=== PATIENT | male | born 1955 | race Caucasian/White ===

== ENCOUNTER → 2017-08-26 16:15 | Outpatient (POV) | payer BC, SELFPAY ==
--- NOTE | 2017-08-26 16:18 | HMH.PMPROC ---
- Procedure Date: 08/26/17 Time: 16:18 Anesthesiologist:: Pooja Jacob APRN Complications:: None Pre-procedure Diagnosis:: Postlaminectomy cervical spine, degenerative disc disease of the lumbar spine, chronic pain syndrome Post-procedure Diagnosis:: Same Indications for Procedure:: Patient is a pleasant 61-year-old white male who presents today to discuss his intrathecal pain pump and possible readjustment. Patient states that recently he has had an increase in his pain in his back and neck. Patient states that he has not done anything to aggravate his pain. Patient currently on meloxicam 15 mg daily. Patient has been on this for years. Patient is currently at 0.35 mg of hydromorphone daily with his intrathecal pump. And then he has a PTC with 0.03 mg 6 times a day. Patient rates his pain a 7 out of 10 today. Patient denies any side effects including urinary retention, respiratory depression, sleepiness. Procedure Details:: patient was taken back to clinic room where informed consent was obtained and the risks and benefits of the procedure were explained to the patient. The pain pump was interrogated. Patient had hydromorphone 0.35 mg daily going as a basal rate. And also had a PTC rate of 0.03 mg 6 times a day with a lockout of 4 hours. The pain pump was reprogrammed at a basal rate of 0.4 mg daily of hydromorphone and the PTC at 0.04 mg 6 times a day lockout of 4 hours. Patient tolerated procedure well. Plan and Disposition:: Patient was reassessed after the procedure and stable. I will call in diclofenac 75 mg 1 p.o. twice daily to his pharmacy. I discussed with him that he needed to stop his meloxicam. We will see him back at his next refill and reassess his symptoms at at that time. He has been instructed to call the office if any issues arise in between those times. This note was dictated with voice recognition software and may contain errors and omissions
== END ==
PROVIDERS: Family Provider Family Medicine; PCP Family Medicine; Visit Provider Clinical Nurse Specialist Family Health
DX: M54.16 Radiculopathy, lumbar region (principal)
CPT/HCPCS: 62370

== ENCOUNTER 2017-09-20 09:08 | Day surgery (SDC) | payer BC, SELFPAY ==
[2017-09-20 09:47] VITALS: BP 141/70; PULSE 73; TEMP 36.5; O2SAT 96; BMI 34.2
--- NOTE | 2017-09-20 10:57 | HMH.PMPROC ---
- Procedure Date: 09/20/17 Time: 10:57 Anesthesiologist:: Julius Stoddard MD Complications:: None Pre-procedure Diagnosis:: Degenerative disc disease of lumbar spine with lumbar radiculopathy symptoms. Postlaminectomy syndrome of the cervical spine with cervical radiculopathy symptoms. Post-procedure Diagnosis:: Same Indications for Procedure:: This patient is a pleasant 61-year-old white male who we are treating for neck pain and low back pain with radicular symptoms. He is doing very well with his pain pump. Currently he is on intrathecal Dilaudid at 0.4 mg per day. He is having some pain over both hips over the SI joints radiating to the groin. I do believe he would benefit from bilateral SI joint injections. He does have a positive José Miguel's test bilaterally. He has tenderness over both SI joints. He does have an antalgic gait. Motor strength of the lower extremities is 5/5. There is no gross sensory deficit. We will refill his pump and continue him at 0.4 mg per day of intrathecal Dilaudid. Procedure Details:: Pain pump refill Informed consent was obtained and the risks and benefits of the procedure was explained to the patient. The patient was taken to the procedure room. The pump was interrogated. The area over the pump was prepped using ChloraPrep. The pump was accessed with a 22-gauge needle. Approximately 5.5 mL mL's of the intrathecal solution was withdrawn and discarded. The pump was then refilled with 20 mL's of intrathecal Dilaudid 3 mg/mL. The pump was interrogated and the infusion was continued at 0.4 mg per day. The patient tolerated the procedure well with no complication. Plan and Disposition:: We will follow-up with him in 2 weeks. We will reevaluate his symptoms. We will also plan on bilateral SI joint injections under fluoroscopy. Again he is tender over both SI joints. He does have a positive José Miguel's test bilaterally. Pain radiates from the SI joint into the groin.
[2017-09-20 10:58] VITALS: BP 156/75; PULSE 80; RESP 18; O2SAT 98
[2017-09-20 10:59] VITALS: BP 163/79; PULSE 80; RESP 20; O2SAT 98
[2017-09-20 11:05] VITALS: BP 148/76; PULSE 85; O2SAT 97
== END 2017-09-20 11:05 | disposition home or self-care (01) ==
PROVIDERS: Family Provider Family Medicine; PCP Family Medicine; Visit Provider Anesthesiology
DX: M51.16 Intervertebral disc disorders with radiculopathy, lumbar region (principal); M96.1 Postlaminectomy syndrome, not elsewhere classified; M54.12 Radiculopathy, cervical region
CPT/HCPCS: 95991

== ENCOUNTER → 2019-03-24 08:59 | Outpatient (POV) | payer BC, MEDICARE, SELFPAY ==
[2019-03-24 09:27] VITALS: BP 150/70; PULSE 59; RESP 18; O2SAT 98; BMI 32.3
--- NOTE | 2019-03-24 12:30 | HMH.PAINSOAP ---
[facility] Pain Management SOAP Note Subjective:: Patient is a very pleasant 63-year-old white male who presents today for intrathecal pain pump follow-up. He is currently being filled with home refill and doing extremely well he rates his pain a 2 out of 10 today. His urine drug been appropriate. He denies side effects to his medication. [facility] #[id number] reviewed and appropriate. Patient is getting ready to [place] on vacation he will be filled by his home refill nurse prior to that ROS General: no recent weight change, no fever, no sleep disturbances Respiratory: no cough, no shortness of air, no recurring pulmonary infections Cardiovascular/Peripheral Vascular: No chest pain, No palpitations, no edema, no shortness of breath. Gastrointestinal: no incontinence, normal bowel movements reported Genitourinary: no incontinence Musculoskeletal: Back pain, leg pain Psychiatric: normal mood/ affect, [denies depression], [denies anxiety] Neurological: [denies weakness in extremities], [denies balance issues] Objective:: Physical Exam General: Alert and oriented x3, no acute distress, pleasant and cooperative, [on room air] Lungs: Resps E/U, Symmetrical chest expansion, Eyes: PERRL Musculoskeletal: Flexion and extension of lumbar spine somewhat guarded secondary to pain, deep tendon reflexes normal, strength in upper and lower extremities [5/5], slightly antalgic gait noted Neurological: speech clear, 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 Dr. Stoddard has reviewed this note and agrees with this plan of care. This note was dictated using voice recognition software and may contain errors or omissions Pain Management Hx Components *Have you ever received a pneumonia vaccine?: No *Have you received a flu vaccine this season?: No - *Social History *Occupational Status:: other *Travel in the last 8 weeks: None
== END ==
PROVIDERS: PCP Family Medicine; Visit Provider Clinical Nurse Specialist Family Health
DX: M51.16 Intervertebral disc disorders with radiculopathy, lumbar region (principal)
CPT/HCPCS: 99212

== ENCOUNTER → 2020-05-26 12:06 | Outpatient (POV) | payer MEDICARE, BC, SELFPAY ==
[2020-05-26 12:35] VITALS: BP 131/77; PULSE 85; RESP 18; TEMP 36.6; O2SAT 99; BMI 40.3
--- NOTE | 2020-05-26 12:41 | HMH.PAINSOAP ---
[facility] Pain Management SOAP Note Subjective:: Patient is an 64-year-old white male who presents today for follow-up. Patient has a intrathecal pain pump he has home refill. Patient recently has had a blister appear on the apex part of his intrathecal pump. It does have pus draining at this time. While examining him was noted that his intrathecal pain pump is exposed. Patient area was cleansed using chlorhexidine it was then covered in Ioband and secured with ABD pad and Tegaderm. Patient will be seen by Dr. Dolan tomorrow. Patient will be put on Bactrim DS twice a day we will give him a 14-day supply. ROS General: no recent weight change, no fever, no sleep disturbances Respiratory: no cough, no shortness of air, no recurring pulmonary infections Cardiovascular/Peripheral Vascular: No chest pain, No palpitations, no edema, no shortness of breath. Gastrointestinal: no new onset incontinence, normal bowel movements reported Genitourinary: no new onset incontinence Musculoskeletal: Back pain Skin: Quarter sized blister noted on the apex of the intrathecal pain pump. 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 Diomedes herrrea was contacted we will start the patient on Bactrim DS twice a day patient area was cleaned and bandage was secured. We will continue to follow up with the patient after his visit with Dr. Diomedes herrera. Dr. Stoddard has reviewed this note and agrees with this plan of care. This note was dictated using voice recognition software and may contain errors or omissions [facility] History I have reviewed the patient's past medical history: Yes Medical History: Reports:: Hypertension Denies:: Cancer, Diabetes Mellitus Type 1, Diabetes Mellitus Type 2, MRSA, Seizures *Have you ever received a pneumonia vaccine?: Yes *Have you received a flu vaccine this season?: Yes Other Medical History: Reports: Arthritis Amputation: No Fractures: No - *Social History Smoking Status: Never smoker Alcohol Intake: never *Occupational Status:: other Housing: house Household Members: spouse *Travel in the last 8 weeks: None Family Hx:: Cancer, Hyperlipidemia, Hypertension
== END ==
PROVIDERS: PCP Family Medicine; Visit Provider Clinical Nurse Specialist Family Health
DX: M51.16 Intervertebral disc disorders with radiculopathy, lumbar region (principal)
CPT/HCPCS: 99212

== ENCOUNTER → 2020-05-30 15:07 | Outpatient (CLI) | payer MEDICARE, BC, SELFPAY ==
[2020-05-30 16:17] LABS: Alanine Aminotransferase 37 U/L (12-78); Albumin Level 4.5 g/dl (3.5-5.0); Albumin/Globulin Ratio 1.4 (1.1-1.8); Alkaline Phosphatase 76 U/L (38-126); Anion Gap 11.9 mEq/L (5-15); Aspartate Amino Transferase 39 U/L (17-59); Bilirubin,Total 0.4 mg/dl (0.2-1.3); Blood Urea Nitrogen 24 mg/dl (9-20); Calcium 9.9 mg/dl (8.4-10.2); Carbon Dioxide 29 mmol/L (22.0-30.0); Chloride 102 mmol/L (98-107); Estimated Glomerular Filt Rate 51 ml/min (>60); GFR (African American) 62 ML/MIN (>60); Globulin 3.2 g/dL (1.3-3.2); Glucose 109 mg/dl (74-100); Potassium 4.9 mmoL/L (3.5-5.1); Sodium 138 mmol/L (136-145); Total Protein,Serum 7.7 g/dl (6.3-8.2)
== END ==
PROVIDERS: Visit Provider Anesthesiology
DX: Z01.818 Encounter for other preprocedural examination (principal)
CPT/HCPCS: 36415; 80053

== ENCOUNTER → 2020-06-01 11:04 | Outpatient (CLI) | payer MEDICARE, BC, SELFPAY | PROVIDERS: Visit Provider Surgery | DX: Z03.818 Encounter for observation for suspected exposure to other biological agents ruled out (principal) | CPT/HCPCS: U0003 ==

== ENCOUNTER → 2020-06-10 11:02 | Outpatient (POV) | payer MEDICARE, BC, SELFPAY ==
[2020-06-10 11:16] VITALS: BP 155/78; PULSE 92; RESP 18; TEMP 36.2; O2SAT 98; BMI 43.8
--- NOTE | 2020-06-10 13:06 | HMH.PMPROC ---
- Procedure Date: 06/10/20 Time: 13:06 Anesthesiologist:: Julius Stoddard MD Complications:: None Pre-procedure Diagnosis:: Degenerative disc disease of lumbar spine with lumbar radiculopathy symptoms status post washout and repositioning for infected pain pump Post-procedure Diagnosis:: Same Indications for Procedure:: This patient is a pleasant 64-year-old white male who we are seeing status post repositioning and washout of his intrathecal pain pump as his pump was exposed with possible infection. His incision is healing very nicely. He still does have some serous drainage however there is no pus coming from his incision. He has no signs of infections. He continues on antibiotics. His incision is healing very nicely and he has no side effects. He is having some increasing pain so we will increase his intrathecal hydromorphone infusion from 0.9 mg/day to 1 mg/day. He continues on periodic flow boluses will be increased to 0.083 mg every 2 hours. Procedure Details:: Informed consent was obtained and the risk and benefits of the procedure were explained to the patient. The patient was taken to the procedure room. We did look at his incision which is healing very nicely he does have some serous fluid draining from his incision however there is no infection. Pump was interrogated periodic boluses were increased to 0.083 mg every 2 hours for total of 12 boluses increasing daily dose to 1 mg/day. Patient tolerated the procedure well with no complications. Plan and Disposition:: We will see the patient back in 1 week. We will reevaluate his symptoms at that time. We will also continue to follow his incision and make sure there is no signs of infection. He does see Dr. Dolan on Saturday.
== END ==
PROVIDERS: PCP Internal Medicine Adolescent Medicine; Visit Provider Anesthesiology
DX: M51.16 Intervertebral disc disorders with radiculopathy, lumbar region (principal); Z45.1 Encounter for adjustment and management of infusion pump
CPT/HCPCS: 62368; 99212

== ENCOUNTER → 2020-06-24 09:17 | Outpatient (POV) | payer MEDICARE, BC, SELFPAY ==
[2020-06-24 10:33] VITALS: BP 161/87; PULSE 84; RESP 18; TEMP 36.7; O2SAT 96; BMI 32.3
--- NOTE | 2020-06-24 11:10 | P.CONS_ITS ---
[facility] Pain Management SOAP Note Subjective:: Patient is a pleasant 64-year-old white male who we have been treating for low back pain with lumbar radiculopathy symptoms. He is status post washout of his pain pump site with repositioning. Last week we saw his incision and it was healing very nicely. He now has increased redness and some drainage from the medial aspect of his incision. I have sent pictures to Dr. Hercules more. I talked to Dr. Dolan. We will continue his Bactrim and we have ordered a CBC and Chem-7 to look at his white count and patient also want to look at his electrolytes and kidney function. His pump will be continued at 1 mg/day of intrathecal hydromorphone. He is due for refill in the next couple weeks. He has 3 mls left in his pump which gives him 15 days of medication. We will continue to watch this. We will follow-up with him on Saturday he will be seen by Dr. Dolan at that time. Objective:: Alert and oriented x3 no acute distress. Patient does have an antalgic gait. Motor strength of the lower extremities is 5/5. There is no gross sensory deficit. Patient has had no fevers. No signs of infection. He does have some increased redness on the medial aspect of his incision. Sutures are in place. He does also have some drainage on the medial aspect of his incision. Assessment:: Degenerative disc disease of lumbar spine with lumbar radiculopathy symptoms status post pump repositioning and washout Plan:: His pump will be continued at 1 mg/day of intrathecal hydromorphone. He is due for refill in the next couple weeks. He has 3 mls left in his pump which gives him 15 days of medication. We will continue to watch this. We will follow-up with him on Saturday he will be seen by Dr. Dolan at that time. [facility] History Medical History: Reports:: Hypertension Denies:: Cancer, Diabetes Mellitus Type 1, Diabetes Mellitus Type 2, MRSA, Seizures *Have you ever received a pneumonia vaccine?: No *Have you received a flu vaccine this season?: No Other Medical History: Reports: Arthritis Amputation: No Fractures: No - *Social History Smoking Status: Never smoker Alcohol Intake: never *Occupational Status:: retired Housing: house Household Members: spouse *Travel in the last 8 weeks: None Family Hx:: Cancer, Hyperlipidemia, Hypertension
[2020-06-24 11:29] LABS: Basophils # 0.1 K/mm3 (0-0.2); Basophils % 0.8 % (0.1-2.0); Eosinophils # 0.3 K/mm3 (0.0-0.4); Eosinophils % 5.3 % (0.1-12.0); Hematocrit 42.4 % (42.0-52.0); Hemoglobin 14.5 g/dL (14.1-18.0); Lymphocytes # 1.6 K/mm3 (0.7-4.5); Lymphocytes % 27.1 % (10-50); Mean Corpuscular HGB Conc 34.1 g/dL (31.8-35.4); Mean Corpuscular Volume 99.6 fl (80-94); Mean Platelet Volume 9.5 fl (7.4-10.4); Monocytes # 0.6 K/mm3 (0.1-1.0); Monocytes % 10.5 % (1.7-9.3); Neutrophils # 3.3 K/mm3 (1.8-7.8); Neutrophils % 56.3 % (37.0-80.0); Platelet Count 193 K/mm3 (142-424); Red Blood Count 4.26 M/mm3 (4.60-6.20); Red Cell Distribution Width 13.4 % (11.5-17.5); White Blood Count 5.9 K/mm3 (4.8-10.8)
[2020-06-24 12:10] LABS: Chloride 100 mmol/L (98-107); Potassium 4.4 mmoL/L (3.5-5.1); Sodium 138 mmol/L (136-145)
[2020-06-24 12:13] LABS: Anion Gap 14.4 mEq/L (5-15); Blood Urea Nitrogen 18 mg/dl (9-20); Calcium 10.4 mg/dl (8.4-10.2); Carbon Dioxide 28 mmol/L (22.0-30.0); Creatinine Clearance Estimated 98 mL/min (50-200); Estimated Glomerular Filt Rate 76 ml/min (>60); GFR (African American) 92 ML/MIN (>60); Glucose 175 mg/dl (74-100)
== END ==
PROVIDERS: PCP Family Medicine; Visit Provider Anesthesiology
DX: M51.16 Intervertebral disc disorders with radiculopathy, lumbar region (principal); Z45.1 Encounter for adjustment and management of infusion pump
CPT/HCPCS: 80048; 85025; 99212

== ENCOUNTER → 2020-06-29 09:32 | Outpatient (POV) | payer MEDICARE, BC, SELFPAY ==
[2020-06-29 10:25] VITALS: BP 174/85; PULSE 72; RESP 20; TEMP 36.4; O2SAT 96; BMI 32.3
== END ==
PROVIDERS: Visit Provider Surgery
DX: Z53.20 Procedure and treatment not carried out because of patient's decision for unspecified reasons (principal)
CPT/HCPCS: 99212

== ENCOUNTER → 2020-10-18 10:09 | Outpatient (CLI) | payer MEDICARE, BC, SELFPAY | PROVIDERS: PCP Family Medicine; Visit Provider Surgery | DX: Z01.812 Encounter for preprocedural laboratory examination (principal); Z20.822 Contact with and (suspected) exposure to COVID-19 | CPT/HCPCS: U0003 ==

== ENCOUNTER → 2020-10-28 09:59 | Outpatient (POV) | payer MEDICARE, BC, SELFPAY ==
[2020-10-28 10:11] VITALS: BP 190/91; PULSE 87; RESP 18; TEMP 36.6; O2SAT 98; BMI 32.1
--- NOTE | 2020-10-28 10:38 | P.CONS_ITS ---
[facility] Pain Management SOAP Note Subjective:: This patient is a pleasant 64-year-old white male who we have been treating for low back pain with lumbar radiculopathy symptoms. He recently had his intrathecal pain pump taken out for infection. His pump was exposed. He was placed on oral oxycodone. He did go through withdrawal symptoms. He still has some restless leg syndromes. We will put him on Valium 5 mg twice a day to help with his muscle spasms and restless leg. He is to continue with his oxycodone. He was also placed on Requip. Pain score is a 7 out of 10. Overall he still has increasing pain and orals are not as good as his pump. Objective:: Alert and oriented x3 no acute distress. Patient has an antalgic gait. Motor strength of the lower extremities is 5/5. There is no gross sensory deficit. His incisions are healing. Drainage is very minimal and is serous fluid. Assessment:: Postlaminectomy syndrome lumbar spine with lumbar radiculopathy symptoms with recently explanted intrathecal pain pump. Plan:: Patient is wanting his pain pump put back in. I told him it will be another 7 weeks before we can replace his intrathecal pain pump. For now he is to continue on his oral oxycodone, Requip and will start Valium 5 mg twice a day. We will follow-up with him next Saturday. We will reevaluate his symptoms at that time. He is also scheduled to see Dr. Dolan on Saturday. [facility] History Medical History: Reports:: Hypertension Denies:: Cancer, Diabetes Mellitus Type 1, Diabetes Mellitus Type 2, MRSA, Seizures *Have you ever received a pneumonia vaccine?: No *Have you received a flu vaccine this season?: No Other Medical History: Reports: Arthritis Amputation: No Fractures: No - *Social History Smoking Status: Never smoker Alcohol Intake: never *Occupational Status:: retired Housing: house Household Members: spouse *Travel in the last 8 weeks: None Family Hx:: Cancer, Hyperlipidemia, Hypertension
== END ==
PROVIDERS: PCP Family Medicine; Visit Provider Anesthesiology
DX: M96.1 Postlaminectomy syndrome, not elsewhere classified (principal); M51.16 Intervertebral disc disorders with radiculopathy, lumbar region; Z98.890 Other specified postprocedural states
CPT/HCPCS: 99212; G0463

== ENCOUNTER → 2020-11-02 10:43 | Outpatient (POV) | payer MEDICARE, BC, SELFPAY ==
[2020-11-02 11:27] VITALS: BP 187/101; PULSE 77; RESP 20; O2SAT 98; BMI 32.3
--- NOTE | 2020-11-02 13:32 | P.CONS_ITS ---
[facility] Pain Management SOAP Note Subjective:: Patient is a pleasant 64-year-old white male who we have been treating for low back pain with lumbar radiculopathy symptoms. He recently had his intrathecal pain pump taken out for infection purposes. He does have a drain and he is not draining very much serous fluid. He is scheduled to have his drain taken out by Dr. Hercules more today. Overall he is doing well however he does have increasing pain at night. He would like to increase his oxycodone intake. We will increase this to oxycodone 20 mg 1 tablet 6 times a day increasing from 4 times a day. I told him to discontinue his Valium since it is not helping. We will increase his oral oxycodone and continue to follow him in the pain clinic until he is eligible for replacement of his intrathecal pain pump. Objective:: Alert and oriented x3 no acute distress. Patient does have an antalgic gait. Motor strength of lower extremities is 5/5. There is no gross sensory deficit. Incisions are healing very nicely. There is very little serous fluid draining from his drain. Assessment:: Degenerative disc disease of lumbar spine with lumbar radiculopathy symptoms and postlaminectomy syndrome lumbar spine with recently explanted intrathecal pain pump Plan:: We will increase his oral oxycodone to 20 mg 1 tablet 6 times a day. And continue to follow him in the pain clinic until he is eligible for replacement of his intrathecal pain pump. [facility] History Medical History: Reports:: Hypertension Denies:: Cancer, Diabetes Mellitus Type 1, Diabetes Mellitus Type 2, MRSA, Seizures *Have you ever received a pneumonia vaccine?: Yes *Have you received a flu vaccine this season?: Yes Other Medical History: Reports: Arthritis Amputation: No Fractures: No - *Social History Smoking Status: Never smoker Alcohol Intake: never *Occupational Status:: retired Housing: house Household Members: spouse *Travel in the last 8 weeks: None Family Hx:: Cancer, Hyperlipidemia, Hypertension
== END ==
PROVIDERS: PCP Family Medicine; Visit Provider Anesthesiology
DX: M51.16 Intervertebral disc disorders with radiculopathy, lumbar region (principal); M96.1 Postlaminectomy syndrome, not elsewhere classified
CPT/HCPCS: 99212; G0463

== ENCOUNTER → 2020-11-11 10:03 | Outpatient (POV) | payer MEDICARE, BC, SELFPAY ==
[2020-11-11 10:21] VITALS: BP 175/83; PULSE 69; RESP 18; TEMP 36.6; O2SAT 98; BMI 32.3
--- NOTE | 2020-11-11 10:33 | P.CONS_ITS ---
[facility] Pain Management SOAP Note Subjective:: Patient is a pleasant 64-year-old white male who we have been treating for low back pain with lumbar radiculopathy symptoms. He did have his intrathecal pain pump taken out for infection. He is 3 weeks out of surgery. Stitches are still in his incisions are healing very nicely. There is no drainage. We had increased his oxycodone to 20 mg up to 6 times a day. He is doing much better on this medication regimen. He is no longer taking his Valium. He did have some itching. He has taken Benadryl for this. We will continue with his current oral medication regimen. We will hold off on taking out his stitches until next week this is after consulting with Dr. Dolan. We will follow-up with him in 1 week. He also has some myofascial pain over the right scapular area. I do believe he would benefit from trigger point injections to this area. Objective:: Alert and oriented x3 no acute distress. Patient does have an antalgic gait. Incision is healing very nicely. There is no drainage. There is no signs of infection. Motor strength of the lower extremities is 5/5. There is no gross sensory deficit. Assessment:: Degenerative disc disease of lumbar spine with lumbar radiculopathy symptoms and postlaminectomy syndrome lumbar spine Plan:: We will refill his oxycodone 20 mg 1 tablet 6 times a day. We will plan on trigger point injections to the right scapular area and plan on taking out his s titches next week. [facility] History Medical History: Reports:: Hypertension Denies:: Cancer, Diabetes Mellitus Type 1, Diabetes Mellitus Type 2, MRSA, Seizures *Have you ever received a pneumonia vaccine?: Yes *Have you received a flu vaccine this season?: Yes Other Medical History: Reports: Arthritis Amputation: No Fractures: No - *Social History Smoking Status: Never smoker Alcohol Intake: never *Occupational Status:: disabled Housing: house Household Members: spouse *Travel in the last 8 weeks: None Family Hx:: Cancer, Hyperlipidemia, Hypertension
== END ==
PROVIDERS: PCP Family Medicine; Visit Provider Anesthesiology
DX: M51.16 Intervertebral disc disorders with radiculopathy, lumbar region (principal); M96.1 Postlaminectomy syndrome, not elsewhere classified
CPT/HCPCS: 99212; G0463

== ENCOUNTER 2020-11-18 14:36 | Day surgery (SDC) | payer MEDICARE, BC, SELFPAY ==
[2020-11-18 15:12] VITALS: BP 157/90; PULSE 82; RESP 18; TEMP 37; O2SAT 93; BMI 43.8
[2020-11-18 15:29] VITALS: BP 135/85; BP 139/89; PULSE 85; RESP 18; O2SAT 98
--- NOTE | 2020-11-18 15:32 | HMH.PMPROC ---
- Procedure Date: 11/18/20 Time: 15:32 Anesthesiologist:: Julius Stoddard MD Complications:: None Pre-procedure Diagnosis:: Mid back pain with myofascial pain over the thoracic paraspinous area bilaterally Post-procedure Diagnosis:: Same Indications for Procedure:: This patient is a pleasant 64-year-old white male who we are treating for mid back pain and low back pain with lumbar radiculopathy symptoms. He did have his intrathecal pain pump taken out for infection. He is approximately 4 weeks out of surgery. Stitches were taken out today. Steri-Strips were placed. His incisions are continually healing. He is on oxycodone 20 mg 6 times a day he is doing much better with this medication regimen. He does have some myofascial pain over the thoracic paraspinous muscles. We will do trigger point injections today. Procedure Details:: Trigger point injections x8 to bilateral thoracic paraspinous muscles Informed consent was obtained risk and benefits of the procedure were explained to the patient. Patient was taken the procedure room. The mid back was prepped using ChloraPrep. A total of 8 trigger points were injected each 1 with bupivacaine 0.25% 3 mL and Depo-Medrol 10 mg. A total of 80 mg Depo-Medrol was used for 8 trigger points. Therefore trigger points on each side. Patient tolerated the procedure well with no complications. Plan and Disposition:: We will follow-up with this patient in 1 week. Will reevaluate his symptoms at that time. We did call in his oxycodone 20 mg 1 tablet 6 times a day.
[2020-11-18 15:42] VITALS: BP 115/76; PULSE 65; RESP 18; O2SAT 98
== END 2020-11-18 15:43 | disposition home or self-care (01) ==
LOC: SC.PAINP 14:36
PROVIDERS: PCP Family Medicine; Visit Provider Anesthesiology
DX: M79.18 Myalgia, other site (principal); I10 Essential (primary) hypertension; Z88.5 Allergy status to narcotic agent; Z82.49 Family history of ischemic heart disease and other diseases of the circulatory system; Z83.3 Family history of diabetes mellitus
CPT/HCPCS: 20552; J1030

== ENCOUNTER → 2020-12-02 11:08 | Outpatient (POV) | payer MEDICARE, BC, SELFPAY ==
[2020-12-02 11:24] VITALS: BP 199/89; PULSE 65; RESP 18; O2SAT 98; BMI 31.9
--- NOTE | 2020-12-02 11:49 | P.CONS_ITS ---
[facility] Pain Management SOAP Note Subjective:: The patient is a pleasant 64-year-old white male who we are treating for mid back pain and low back pain with lumbar radiculopathy symptoms. He is intrathecal pain pump was taken out 6 weeks ago because of infection risk. His incisions have healed up very nicely. There is no drainage. There is no signs of any infection. He is currently being managed with oral medications oxycodone 20 mg up to 6 times a day. He has started to wean himself down on this medication. He did well from his trigger point injections previously. He is wanting to look at replacing his intrathecal pain pump at this time. Objective:: Alert and oriented x3 no acute distress. Patient does have a antalgic gait. Motor strength of the lower extremities is 5/5. There is no gross sensory deficit. Incisions over the pump explant have healed nicely. Assessment:: Degenerative disc disease of lumbar spine with lumbar radiculopathy symptoms Plan:: We will obtain a CBC to look at his white count. We will also seek approval for replacement of his intrathecal pain pump. He is starting to wean down on his oral medications. It is already been 6 weeks since his pump explant. We will plan on replacing his pump anytime after the 8-week period. [facility] History Medical History: Reports:: Hypertension Denies:: Cancer, Diabetes Mellitus Type 1, Diabetes Mellitus Type 2, MRSA, Seizures *Have you ever received a pneumonia vaccine?: Yes *Have you received a flu vaccine this season?: Yes Other Medical History: Reports: Arthritis. Denies: Blood Transfusion Reaction Other Surgeries: Yes: Hernia Repair, Other (slipped disc surgery x2) Amputation: No Fractures: No - *Social History Smoking Status: Never smoker Alcohol Intake: never *Occupational Status:: retired Housing: house Household Members: spouse *Travel in the last 8 weeks: None Family Hx:: Cancer, Hyperlipidemia, Hypertension
[2020-12-02 12:29] LABS: Basophils # 0.1 K/mm3 (0-0.2); Basophils % 0.7 % (0.1-2.0); Eosinophils # 0.1 K/mm3 (0.0-0.4); Eosinophils % 1.7 % (0.1-12.0); Hematocrit 42.9 % (42.0-52.0); Hemoglobin 14.3 g/dL (14.1-18.0); Lymphocytes # 1.4 K/mm3 (0.7-4.5); Lymphocytes % 17.8 % (10-50); Mean Corpuscular HGB Conc 33.4 g/dL (31.8-35.4); Mean Corpuscular Hemoglobin 32.6 pg (27.0-31.2); Mean Corpuscular Volume 97.5 fl (80-94); Monocytes # 0.6 K/mm3 (0.1-1.0); Monocytes % 7.7 % (1.7-9.3); Neutrophils # 5.5 K/mm3 (1.8-7.8); Neutrophils % 72.1 % (37.0-80.0); Platelet Count 177 K/mm3 (142-424); Red Cell Distribution Width 14.2 % (11.5-17.5); White Blood Count 7.6 K/mm3 (4.8-10.8)
== END ==
PROVIDERS: PCP Family Medicine; Visit Provider Anesthesiology
DX: M51.16 Intervertebral disc disorders with radiculopathy, lumbar region (principal); Z79.891 Long term (current) use of opiate analgesic
CPT/HCPCS: 36415; 85025; 99212; G0463

== ENCOUNTER → 2020-12-26 12:29 | Outpatient (CLI) | payer MEDICARE, BC, SELFPAY ==
[2020-12-26 12:58] LABS: Basophils % 0.6 % (0.1-2.0); Eosinophils # 0.1 K/mm3 (0.0-0.4); Eosinophils % 1.9 % (0.1-12.0); Hematocrit 46.2 % (42.0-52.0); Hemoglobin 15.5 g/dL (14.1-18.0); Lymphocytes # 1.3 K/mm3 (0.7-4.5); Lymphocytes % 18.4 % (10-50); Mean Corpuscular HGB Conc 33.6 g/dL (31.8-35.4); Mean Corpuscular Hemoglobin 32.6 pg (27.0-31.2); Mean Corpuscular Volume 97.2 fl (80-94); Monocytes # 0.5 K/mm3 (0.1-1.0); Monocytes % 6.7 % (1.7-9.3); Neutrophils # 5.1 K/mm3 (1.8-7.8); Neutrophils % 72.4 % (37.0-80.0); Platelet Count 183 K/mm3 (142-424); Red Blood Count 4.75 M/mm3 (4.60-6.20); Red Cell Distribution Width 14.1 % (11.5-17.5); White Blood Count 7.1 K/mm3 (4.8-10.8)
[2020-12-26 13:29] LABS: Chloride 102 mmol/L (98-107); Sodium 140 mmol/L (136-145)
[2020-12-26 13:30] LABS: Potassium 4.7 mmoL/L (3.5-5.1)
[2020-12-26 13:32] LABS: Blood Urea Nitrogen 17 mg/dl (9-20); Estimated Glomerular Filt Rate 85 ml/min (>60); GFR (African American) 103 ML/MIN (>60)
[2020-12-26 13:33] LABS: Anion Gap 12.7 mEq/L (5-15); Calcium 9.8 mg/dl (8.4-10.2); Carbon Dioxide 30 mmol/L (22.0-30.0); Glucose 151 mg/dl (74-100)
[2020-12-26 15:43] LABS: Amphetamine/Metha Screen,Urine Negative ng/ml (<1000)
[2020-12-26 15:44] LABS: Barbiturates Screen,Urine Negative ng/ml (<200)
[2020-12-26 15:45] LABS: Benzodiazepines Screen,Urine Negative ng/ml (<200); Cannabinoid Screen,Urine Negative ng/ml (<50)
[2020-12-26 15:46] LABS: Cocaine Screen,Urine Negative ng/ml (<300)
[2020-12-26 15:47] LABS: Methadone Screen,Urine Negative ng/ml (<300)
[2020-12-26 15:48] LABS: Opiate Screen,Urine Positive ng/ml (<300); Phencyclidine Screen,Urine Negative ng/ml (<25)
== END ==
PROVIDERS: Visit Provider Anesthesiology
DX: Z01.812 Encounter for preprocedural laboratory examination (principal); Z11.52 Encounter for screening for COVID-19; M51.36 Other intervertebral disc degeneration, lumbar region; Z79.891 Long term (current) use of opiate analgesic
CPT/HCPCS: 36415; 80048; 80305; 85025; U0003

== ENCOUNTER 2020-12-28 08:26 | Day surgery (SDC) | payer MEDICARE, BC, SELFPAY ==
[2020-12-22 09:37] VITALS: BMI 30.7
[2020-12-28 09:42] VITALS: BP 176/77; PULSE 62; RESP 18; TEMP 37; O2SAT 99
--- NOTE | 2020-12-28 10:14 | HMH.ANESCL ---
[facility] Anesthesia Checklist - Patient Identification Patient Identification: Arm Band - Structural Data Admitted From: Home Planned Operative Procedure/s: Intrathecal pain pump insertion Consent for Planned Operative Procedure(s) Verified: Yes - NPO Status Verified Time NPO: 00:00 - Additional verifications Anesthesia Reactions: No Hx Blood Transfusions: No Blood Transfusion Reaction: No - Airway Assessment C-Spine Mobility Assessed: Yes TMJ Mobility Assessed: Yes Dentition: Partials - Neurological Assessment Level of Consciousness: Awake Hx Seizures: No Numbness or tingling in extremities: Yes - Anesthesia Plan Anesthesia Risk discussed: Yes Anesthesia Plan: Verified ASA Class: III Anesthesia Type: General [facility] History I have reviewed the patient's past medical history: Yes Medical History: Reports:: Gastroesophageal Reflux Disease(GERD), Hypertension, MRSA Denies:: Cancer, Diabetes Mellitus Type 1, Diabetes Mellitus Type 2, Internal Pacemaker, Seizures *Have you ever received a pneumonia vaccine?: No *Have you received a flu vaccine this season?: No Other Medical History: Reports: Arthritis, Other (Severe JACQUELYN). Denies: Blood Transfusion Reaction Anesthesia experience/problems:: Mother - hard time waking up Other Surgeries: Yes: Hernia Repair, Other (slipped disc surgery x2). No: Pacemaker Amputation: No Fractures: No - *Social History Last grade of school completed: High school graduate Smoking Status: Never smoker Alcohol Intake: current Alcohol Intake Frequency:: a few times a month Substance Use Type: denies use *Occupational Status:: retired Housing: house Household Members: spouse *Travel in the last 8 weeks: None Family Hx:: Cancer, Hyperlipidemia, Hypertension
--- NOTE | 2020-12-28 13:23 | PC.NURSE ---
called in RX for BActrim DS PO BID x5 days per md order.
--- NOTE | 2020-12-28 13:35 | SUR.OPER ---
Procedure: Intrathecal catheter placement for permanent intrathecal pump placement Provider: Leola Painting MD Complications: None Antibiotics: Vancomycin preoperatively, Bactrim DS postoperatively PreOperative diagnosis: Lumbar radiculopathy, degenerative disc disease of the lumbar spine Postoperative diagnosis: Same Indications: Patient is a very pleasant 84-year-old white male who we are treating for mid back pain and low back pain related to lumbar radiculopathy symptoms and degenerative disc disease of the lumbar spine. He has previously had an intrathecal pump but it was taken out 2 months ago because of infection risk. His incisions have healed up appropriately. He is currently being managed on oral medications oxycodone 20 mg up to 6 times a day and has since weaned down. Plan for today is for him to undergo intrathecal catheter placement for permanent intrathecal pump placement. Procedure: Informed consent was obtained and the risk and benefits of the procedure were explained to the patient. The patient was taken to the operating room. Patient was prepped and draped in sterile fashion. C-arm fluoroscopy was used to view the lumbar spine. The skin and subcutaneous tissues were anesthetized using lidocaine adjacent to the L4-5 and L5-S1 interspace. I made an incision and dissected down to the lumbar paraspinous fascia. A 14-gauge spinal needle was inserted and advanced into the L4-5 interspace until clear CSF was obtained. After this intrathecal catheter was inserted and advanced very easily to the T12 vertebral body. The previous catheter was visualized at the T11 vertebral body. The stylette of the catheter and the needle were withdrawn. We were able to freely withdraw clear CSF through the catheter. The catheter was secured to the fascia with 2 anchoring devices and 2-0 Prolene. I prepared the pump with 20 mL of intrathecal dilaudid 1 mg/mL while Dr. Dolan prepared the pump pocket. I tunneled the catheter from the back to the pump pocket and attached the catheter to the pump. The pump was secured to the fascia with 2-0 Prolene. We were able to freely withdraw clear CSF through the side-port. Both incisions were then closed with 2-0 Vicryl followed by 4-0 nylon. A wound VAC was placed over both incisions. The patient was placed in an abdominal binder. Patient was taken to recovery in stable condition. Patient tolerated the procedure well with no complications. The pump was interrogated and started at 0.1 mg/day of [intrathecal dilaudid] Patient was discharged home neurologically intact and with good relief of pain symptoms. Plan and disposition: We will follow-up with this patient in 1 week for wound check and reprogramming. We will follow-up in 2 weeks for suture removal of abdominal incision. We will follow-up in 4 weeks for back incision. If the patient has any problems or questions they are to call us in the pain clinic.
[2020-12-28 13:38] VITALS: BP 149/80; PULSE 55; RESP 18; O2SAT 96
[2020-12-28 13:53] VITALS: BP 149/78; PULSE 55; RESP 18; O2SAT 96
--- NOTE | 2020-12-28 13:57 | P.OP_ITS ---
Date of procedure: 12/28/20 Pre-op Diagnosis:: Disc disease of the lumbar spine with radiculopathy Post-op Diagnosis:: Same Procedure performed:: Placement of pain pump generator Surgeon:: Dandy Dolan MD CHARTER BOAT CAPTAIN:: Oneil Potter, Ranjan Urbina, Hernan Galvez, Riaz Newman, Other Anesthesia: GETA Estimated blood loss (mL): 25 Operative findings:: Not applicable Operative note:: Once adequate IV sedation was obtained the patient was placed on his right side and his back and abdomen were prepped and draped in sterile fashion. The intrathecal catheter was placed by the pain physician under fluoroscopic guidance. The catheter was sutured to the paraspinal incision fascia with 2-0 Prolene sutures and fixation devices. Utilizing the tunneling device the catheter was passed from the paraspinal incision to the left lower quadrant area. At that point a pocket was made by me under which was made as a reservoir for the pain pump generator. The catheter was then connected the generator which was placed in the pocket. CSF was aspirated from the generator noting patency of the system. A counterincision was used on passage of the tunneler and the lateral abdominal wall. At this point the subcutaneous tissues of all incisions closed with 2-0 Vicryl. The skin of the abdomen was closed with interrupted stitches of 2-0 nylon and on the back was interrupted stitches of 4- 0 nylon. Counterincision was also closed with stitches of 4-0 nylon. Wound VAC dressings and binder is applied to the wound. The patient tolerated procedure well and was taken recovery in stable condition. Condition: stable Disposition: PACU Complications:: None
[2020-12-28 14:08] VITALS: BP 154/91; PULSE 50; RESP 18; O2SAT 95
[2020-12-28 14:23] VITALS: BP 152/83; PULSE 50; RESP 18; O2SAT 96
[2020-12-28 14:46] VITALS: BP 146/85; PULSE 52; RESP 18; O2SAT 96
--- NOTE | 2020-12-30 17:12 | HMH.OPNOTE ---
Date of procedure: 12/30/20 Pre-op Diagnosis:: Disease of the lumbar spine with lumbar radiculopathy symptoms Post-op Diagnosis:: Same Procedure performed:: Intrathecal catheter placement for permanent pump placement Surgeon:: Leola Painting MD Anesthesia: MAC Estimated blood loss (mL): 25 Operative findings:: As outlined in operative note Operative note:: Pain pump placement Informed consent was obtained and the risk and benefits of the procedure were explained to the patient. The patient was taken to the operating room. Patient was prepped and draped in sterile fashion. C-arm fluoroscopy was used to view the lumbar spine. The skin and subcutaneous tissues were anesthetized using lidocaine adjacent to the L4-5 and L5-S1 interspace. I made an incision and dissected down to the lumbar paraspinous fascia. A 14-gauge spinal needle was inserted and advanced into the L4-5 interspace until clear CSF was obtained. After this intrathecal catheter was inserted and advanced very easily to the L1 vertebral body. The stylette of the catheter and the needle were withdrawn. We were able to freely withdraw clear CSF through the catheter. The catheter was secured to the fascia with 2 anchoring devices and 2-0 Prolene. I prepared the pump with 20 mL of intrathecal dilaudid 1 mg/mL while Dr. Dolan prepared the pump pocket. I tunneled the catheter from the back to the pump pocket and attached the catheter to the pump. We were able to freely withdraw clear CSF through the side-port. Both incisions were then closed with 2-0 Vicryl followed by 4-0 nylon. A wound VAC was placed over both incisions. The patient was placed in an abdominal binder. Patient was taken to recovery in stable condition. Patient tolerated the procedure well with no complications. The pump was interrogated and started at 0.1 mg/day of intrathecal dilaudid. Patient was discharged home neurologically intact and with good relief of pain symptoms. Plan and disposition: We will follow-up with this patient in 1 week for wound check and reprogramming. We will follow-up in 2 weeks for abdominal suture removal and 4 weeks for back suture removal. If the patient has any problems or questions they are to call us in the pain clinic. Condition: stable Disposition: PACU Complications:: none
== END 2020-12-28 14:46 | disposition home or self-care (01) ==
LOC: OR 08:28
PROVIDERS: PCP Family Medicine; Visit Provider Anesthesiology Pain Medicine
DX: M51.16 Intervertebral disc disorders with radiculopathy, lumbar region (principal); K21.9 Gastro-esophageal reflux disease without esophagitis; I10 Essential (primary) hypertension; Z86.14 Personal history of Methicillin resistant Staphylococcus aureus infection; M19.90 Unspecified osteoarthritis, unspecified site; G47.33 Obstructive sleep apnea (adult) (pediatric); Z87.39 Personal history of other diseases of the musculoskeletal system and connective tissue; Z80.9 Family history of malignant neoplasm, unspecified; Z82.49 Family history of ischemic heart disease and other diseases of the circulatory system; Z83.438 Family history of other disorder of lipoprotein metabolism and other lipidemia; Z88.6 Allergy status to analgesic agent; Z79.899 Other long term (current) drug therapy
CPT/HCPCS: 62350; 62362; 96374; C1755; C1772; J3370

== ENCOUNTER → 2021-01-05 11:15 | Outpatient (POV) | payer MEDICARE, BC, SELFPAY ==
[2021-01-05 11:22] VITALS: BP 148/82; PULSE 54; RESP 18; O2SAT 96; BMI 30.7
--- NOTE | 2021-01-05 12:36 | HMH.PMPROC ---
- Procedure Date: 01/05/21 Time: 12:36 Anesthesiologist:: Ayla Bartlett APRN Complications:: None Pre-procedure Diagnosis:: Degenerative disc disease lumbar spine with lumbar radiculopathy symptoms, back pain Post-procedure Diagnosis:: Same Indications for Procedure:: Patient is a 65-year-old white male who presents today for follow-up after change out of his intrathecal pain pump. The patient had erosion of his previous pump in his lumbar spine x2. As result, the patient's pump was placed in the abdomen left lower quadrant. Patient is here today for 1 week follow-up. Patient's pain is a 6 out of 10 today. He says that his pain is worse and he wants to be increased to his previous dose. Patient I did have a long discussion and he understands that we will not be able to place him back at his previous dose due to not having the intrathecal pump for some time. He was previously on 1 mg/day, periodic flow every 2 hours. He is currently on a dose of 0.1 mg of Dilaudid. He denies any side effects and wants an increase today. Patient removed his own wound VAC on Saturday. Today is , 01/05/2021. Patient did have his procedure on 12/28/2020. He has been advised to continue to keep the incision clean due to high risk of infection. He is in agreement. He does have his abdominal binder on today. I have advised him to continue wearing the abdominal binder until further instructed for removal. He is in agreement. His sutures are intact to the left lower quadrant and to his low back area. There is no redness, drainage, or edema noted to site. He is currently on a dose of Dilaudid at 0.1 mg/day. We will increase him today. Patient's [facility] #[id number] has been reviewed. The patient was previously getting oxycodone 20 mg 1 tablet p.o. up to 6 times daily since having his intrathecal pump removed. I have advised him regarding his oral medications with the intrathecal pump. He is at a very high risk for oversedation and should not be taking both medications simultaneously. 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 Patient was taken to the procedure room where noninvasive monitoring was placed including noninvasive blood pressure cuff and pulse oximeter. Patient's pump was interrogated and was reprogrammed to Dilaudid 0.12 mg/day. PTC started at 0.012 mg up to 4 times daily. The patient tolerated the procedure well with no complications. Plan and Disposition:: We will see the patient back in 1 week. Evert #[id number] has been reviewed and is appropriate. His morphine equivalent at this time is 180. Again, he has been advised to use caution in taking any other medications with his intrathecal pump due to high risk of oversedation. Patient has been prescribed a controlled substance after being counseled on the medication, medication safety, and possible side effects. EVERT report has been obtained and reviewed prior to prescription and found to be appropriate. Opioid contract was reviewed and signed by the patient, and that they have agreed to all of the terms set forth by our compliance program.
== END ==
PROVIDERS: PCP Family Medicine; Visit Provider Clinical Nurse Specialist Family Health
DX: M51.16 Intervertebral disc disorders with radiculopathy, lumbar region (principal)
CPT/HCPCS: 62368

== ENCOUNTER → 2021-01-09 13:33 | Outpatient (POV) | payer MEDICARE, BC, SELFPAY ==
[2021-01-09 14:07] VITALS: BP 153/78; PULSE 66; RESP 18; O2SAT 100; BMI 30.7
--- NOTE | 2021-01-09 14:48 | HMH.PMPROC ---
- Procedure Date: 01/09/21 Time: 14:48 Anesthesiologist:: Ayla Bartlett APRN Complications:: None Pre-procedure Diagnosis:: Degenerative disc disease lumbar spine with lumbar radiculopathy symptoms, chronic back pain Post-procedure Diagnosis:: Same Indications for Procedure:: Patient is a 65-year-old white male who presents today for intrathecal pain pump adjustment. He does have sutures intact at this time. He has an incision to his back, left flank, and left abdomen. He did have an explant of a pain pump due to erosion of the previous pump with reimplant. He is doing well overall. He does say he is not getting enough relief, however, he did remove the wound VAC per himself at his home due to feeling the device was not working properly. He is currently on high dose of Dilaudid at 0.12 mg/day. We will increase him. His Evert and drug screen are appropriate. Denies any side effects to medication. 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 Patient was taken to the procedure room where noninvasive monitoring was placed including noninvasive blood pressure cuff and pulse oximeter. Patient's pump was interrogated and was reprogrammed to Dilaudid at 0.15 mg/day. The patient tolerated the procedure well with no complications. Plan and Disposition:: We will see the patient back in the clinic in 1 week for reevaluation of symptoms. He has been instructed to contact clinic if he has any concerns for his next appointment. Patient has been instructed to contact the clinic with any concerns before the next appointment. Dr. Stoddard has reviewed this note and agrees with this plan of care. This note was dictated using voice recognition software and make contain errors or omissions.
== END ==
PROVIDERS: Visit Provider Clinical Nurse Specialist Family Health
DX: M51.16 Intervertebral disc disorders with radiculopathy, lumbar region (principal); G89.29 Other chronic pain
CPT/HCPCS: 62368

== ENCOUNTER → 2021-01-12 08:07 | Outpatient (POV) | payer MEDICARE, BC, SELFPAY ==
[2021-01-12 08:25] VITALS: BP 139/65; PULSE 68; RESP 18; O2SAT 98; BMI 30.7
--- NOTE | 2021-01-12 08:57 | P.PCN_ITS ---
- Procedure Date: 01/12/21 Time: 08:30 Anesthesiologist:: Ayla Bartlett APRN Complications:: None Pre-procedure Diagnosis:: Degenerative disc disease lumbar spine lumbar radiculopathy symptoms, chronic back pain Post-procedure Diagnosis:: Same Indications for Procedure:: Patient is a 65-year-old white male who presents today for intrathecal pain pump adjustment. He has been treated for degenerative disc disease lumbar spine with lumbar radicular symptoms and chronic back pain. Patient is currently on Dilaudid at 0.15 mg/day and denies any side effects. He would like an increase today. We will give him a slight increase and see him back in a week to reassess his symptoms. Patient recently had a change out of his intrathecal pump due to erosion of the previous pump through the skin. He does rate his pain a 7 out of 10. He denies any side effects to the medication. 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 Patient was taken to the procedure room where noninvasive monitoring was placed including noninvasive blood pressure cuff and pulse oximeter. Patient's pump was interrogated and was reprogrammed to Dilaudid at 0.18 mg/day. The patient tolerated the procedure well with no complications. Plan and Disposition:: We will see the patient back at his next intrathecal refill. He can contact the clinic if he has any concerns before then. Patient has been instructed to contact the clinic with any concerns before the next appointment. Dr. Stoddard has reviewed this note and agrees with this plan of care. This note was dictated using voice recognition software and make contain errors or omissions.
== END ==
PROVIDERS: Visit Provider Clinical Nurse Specialist Family Health
DX: M51.16 Intervertebral disc disorders with radiculopathy, lumbar region (principal); G89.29 Other chronic pain; Z45.1 Encounter for adjustment and management of infusion pump
CPT/HCPCS: 62368

== ENCOUNTER → 2021-01-26 11:32 | Outpatient (POV) | payer MEDICARE, BC, SELFPAY ==
[2021-01-26 11:43] VITALS: BP 143/71; PULSE 65; RESP 18; O2SAT 98; BMI 29.0
--- NOTE | 2021-01-26 12:18 | P.PCN_ITS ---
- Procedure Date: 01/26/21 Time: 12:18 Anesthesiologist:: Ayla Bartlett APRN Complications:: None Pre-procedure Diagnosis:: Degenerative disc disease lumbar spine with lumbar radiculopathy symptoms, chronic low back pain Post-procedure Diagnosis:: Same Indications for Procedure:: Patient is a 65-year-old white male who presents today for intrathecal pain pump adjustment. He has been treated for degenerative disc disease lumbar spine with lumbar radiculopathy symptoms. Patient's pain is a 6 out of 10 today. He would like an increase in his intrathecal therapy. He is a home refill patient. We will place him back on home refill visit after the visit today. He does have a Evert [id number], with a morphine equivalent of 180. The patient is managed as well with oxycodone 20 mg 2 tablets p.o. 3 times daily. He says that his pain is worse due to recent travel. He is currently on Dilaudid at 0.18 mg/day. He would also like an increase in his boluses so that he can take them every 4 hours if needed. He will need sutures removed today. His incision is well approximated, no redness, no drainage, no edema is noted to the site. He is continuing to wear his abdominal binder as well. Physical exam General: Alert and oriented x3, no acute distress, pleasant and cooperative, [on room air] Lungs: Respirations even and unlabored, symmetrical chest expansion Eyes: PERRL Musculoskeletal: Flexion and extension of [] lumbar spine somewhat guarded secondary to pain, deep tendon reflexes normal, strength in upper and lower extremities [5/5], [abnormal gait noted] Neurological: Speech clear, animal technician equal, no gross sensory deficit Integumentary: Incision well approximated, no redness, no drainage, no edema noted to site Procedure Details:: Informed consent was obtained and the risk and benefits of the procedure were explained to the patient. Patient was taken to the procedure room where noninvasive monitoring was placed including noninvasive blood pressure cuff and pulse oximeter. Patient's pump was interrogated and was reprogrammed to hydromorphone at 0.24 mg/day, PTC increased to 0.024 mg up to 6 times daily. The patient tolerated the procedure well with no complications. Plan and Disposition:: Sutures were removed today. Incision is well approximated, without redness, drainage, or edema to the area. He was increased today. We will place the patient back on home refills and see him back in the clinic as needed. Patient has been instructed to contact the clinic with any concerns before the next appointment. Dr. Stoddard has reviewed this note and agrees with this plan of care. This note was dictated using voice recognition software and make contain errors or omissions. Patient has been prescribed a controlled substance after being counseled on the medication, medication safety, and possible side effects. EVERT report has been obtained and reviewed prior to prescription and found to be appropriate. Opioid contract was reviewed and signed by the patient, and that they have agreed to all of the terms set forth by our compliance program.
== END ==
PROVIDERS: Visit Provider Clinical Nurse Specialist Family Health
DX: M51.16 Intervertebral disc disorders with radiculopathy, lumbar region (principal); G89.29 Other chronic pain; Z45.1 Encounter for adjustment and management of infusion pump
CPT/HCPCS: 62368

== ENCOUNTER → 2021-02-09 09:45 | Outpatient (POV) | payer MEDICARE, BC, SELFPAY ==
[2021-02-09 09:52] VITALS: BP 154/72; PULSE 60; RESP 20; O2SAT 99; BMI 29.0
--- NOTE | 2021-02-09 10:27 | HMH.PMPROC ---
- Procedure Date: 02/09/21 Time: 10:28 Anesthesiologist:: Ayla Bartlett APRN Complications:: None Pre-procedure Diagnosis:: Degenerative disc disease lumbar spine with lumbar radiculopathy symptoms Post-procedure Diagnosis:: Same Indications for Procedure:: Patient is a 65-year-old white male who presents today for intrathecal pain pump adjustment. The patient is being treated for degenerative disc disease lumbar spine with lumbar radiculopathy symptoms. The patient is currently on Dilaudid at 0.24 mg/day. Patient does need an increase. He says that he is not getting any significant relief with his pump at this time. PTC is at 0.024 mg 6 times daily. He says the PTC device is not giving him any relief. Dr. Stoddard was contacted regarding the patient's dosing. He would like the patient increase to Dilaudid at 0.48 mg/day. Patient has been advised that this is a significant increase and will need to return to the clinic tomorrow if he is experiencing any side effects. He is in agreement. [facility] #[id number] has been reviewed and is appropriate. Drug screen is appropriate. Patient is continuing to have significant pain in his low back and lower extremities. The patient had an intrathecal pain pump in the past that was explanted. When he did undergo implant of new device, he was decreased significantly in his dosing. Patient is hopeful to get the same pain relief as he did prior to explant. Physical exam General: Alert and oriented x3, no acute distress, pleasant and cooperative, [on room air] Lungs: Respirations even and unlabored, symmetrical chest expansion Eyes: PERRL Musculoskeletal: Flexion and extension of [] lumbar [spine] somewhat guarded secondary to pain, strength in upper and lower extremities [5/5], [antalgic gait noted] Neurological: Speech clear, [operation specialist equal], no gross sensory deficit Procedure Details:: Informed consent was obtained and the risk and benefits of the procedure were explained to the patient. Patient was taken to the procedure room where noninvasive monitoring was placed including noninvasive blood pressure cuff and pulse oximeter. Patient's pump was interrogated and was reprogrammed to Dilaudid at 0.48 mg/day. The patient tolerated the procedure well with no complications. Plan and Disposition:: We will see the patient back as needed. He will start [facility] home refills with his next refill. If the patient has any questions, contact the clinic.
== END ==
PROVIDERS: Visit Provider Clinical Nurse Specialist Family Health
DX: M51.16 Intervertebral disc disorders with radiculopathy, lumbar region (principal); Z45.1 Encounter for adjustment and management of infusion pump
CPT/HCPCS: 62368

== ENCOUNTER → 2021-03-31 09:25 | Outpatient (POV) | payer MEDICARE, BC, SELFPAY ==
[2021-03-31 10:13] VITALS: BP 164/80; PULSE 63; RESP 20; TEMP 36.5; O2SAT 99; BMI 29.0
--- NOTE | 2021-03-31 10:23 | HMH.PMPROC ---
- Procedure Date: 03/31/21 Time: 10:23 Anesthesiologist:: Julius Stoddard MD Complications:: None Pre-procedure Diagnosis:: Degenerative disc disease of lumbar spine with lumbar radiculopathy symptoms Post-procedure Diagnosis:: Same Indications for Procedure:: Patient is a pleasant 65-year-old white male who we are treating for low back pain with lumbar radiculopathy symptoms. He does have a new pump which we are currently adjusting. He is having some increasing pain with increased activity. He is leaving for [place] next month for several months with his . He is under a as home refill. We will adjust his pain pump today and adjust his PTC boluses to see if we can get him better relief of his pain symptoms. Procedure Details:: Analysis and reprogram of intrathecal pain pump Informed consent was obtained the risk and benefits of the procedure were explained to the patient. Patient was taken the procedure room. The pump was interrogated. Intrathecal pain pump was adjusted to 0.8 mg/day. PTC boluses were planned to be adjusted to 0.08 mg up to 8 times a day. Patient did not have his PTC today we will do this when he brings back to clinic. Patient tolerated procedure well with no complications. Plan and Disposition:: Patient is to bring his PTC device to the clinic to have it adjusted. We will follow-up with him before he leaves on his trip or after he returns. We will communicate our changes to [facility] home refill. Evert and drug screen are all appropriate Evert [id number]
== END ==
PROVIDERS: PCP Family Medicine; Visit Provider Anesthesiology
DX: M51.16 Intervertebral disc disorders with radiculopathy, lumbar region (principal); Z45.1 Encounter for adjustment and management of infusion pump; Z88.6 Allergy status to analgesic agent
CPT/HCPCS: 62368

== ENCOUNTER → 2021-11-16 10:48 | Outpatient (POV) | payer MEDICARE, BC, SELFPAY ==
[2021-11-16 11:54] VITALS: BP 179/78; PULSE 69; RESP 18; TEMP 36.8; O2SAT 97; BMI 32.3
--- NOTE | 2021-11-16 12:01 | P.PCN_ITS ---
- Procedure Date: 11/16/21 Time: 12:01 Anesthesiologist:: REGGIE Segura Complications:: None Pre-procedure Diagnosis:: Degenerative disc disease of lumbar spine with lumbar radiculopathy symptoms Post-procedure Diagnosis:: Same Indications for Procedure:: Patient is a pleasant 65-year-old male who presents today for a 6-month follow- up and intrathecal pain pump adjustment. Patient is currently being treated for degenerative disc disease lumbar spine with lumbar radiculopathy symptoms. Patient is a home refill with [facility]. Patient is currently being managed with Dilaudid 10 mg/mL at a rate of 0.96 mg/day. Patient denies any side effects from this medication. Patient denies any change to location and type of pain. Patient rates his pain today as 5 out of 10. Patient is wanting adjustment today. [facility] #[id number] with an active morphine equivalent of 0. Physical Exam: General: Alert and oriented x3, no acute distress, pleasant and cooperative Lungs: Respirations even and unlabored, symmetrical chest expansion Eyes: PERRL Musculoskeletal: Flexion and extension of lumbar [spine] somewhat guarded secondary to pain, [antalgic gait noted] Neurological: Speech clear, no gross sensory deficit Procedure Details:: Informed consent was obtained and the risk and benefits of the procedure were explained to the patient. Patient was taken to the procedure room where noninvasive monitoring was placed including noninvasive blood pressure cuff and pulse oximeter. Patient's pump was interrogated and was reprogrammed to Dilaudid 1.06 mg/day. The patient tolerated the procedure well with no complications. Plan and Disposition:: Follow-up in 6 months. Patient has been instructed to contact the clinic with any concerns before the next appointment. Dr. Stoddard has reviewed this note and agrees with this plan of care. This note was dictated using voice recognition software and make contain errors or omissions.
== END ==
PROVIDERS: Visit Provider Student in an Organized Health Care Education/Training Program
DX: M51.16 Intervertebral disc disorders with radiculopathy, lumbar region (principal); Z45.1 Encounter for adjustment and management of infusion pump
CPT/HCPCS: 62368; 99213; G0463

== ENCOUNTER → 2022-04-12 10:27 | Outpatient (POV) | payer MEDICARE, BC, SELFPAY ==
[2022-04-12 11:44] VITALS: BP 162/73; PULSE 67; RESP 18; TEMP 36.2; O2SAT 99; BMI 32.3
--- NOTE | 2022-04-12 12:25 | EXP.PAIN.PRO ---
Procedure Date: 04/12/22 Time: 11:40 Anesthesiologist:: Hayley Myrick APRN Complications:: None Pre-procedure Diagnosis:: Degenerative disc disease of lumbar spine with lumbar radiculopathy symptoms Post-procedure Diagnosis:: Same Indications for Procedure:: Patient is a pleasant 66-year-old male who presents today for intrathecal pain pump adjustment and reprogram. The patient is being treated for degenerative disc disease of lumbar spine with lumbar radiculopathy symptoms. Patient is currently being managed with Dilaudid 10 mg/mL with a daily dose of 1.3944 mg/day. Patient denies any side effects from this medication. Patient rates pain a 4 out of 10. Drug screen is appropriate. Patient states recently he has had left shoulder pain that often wakes him up at night due to the pain and throbbing. Patient denies any specific trauma or injury. Evert [id number] has been reviewed and is appropriate. Physical exam General: Alert and oriented x3, no acute distress, pleasant and cooperative Lungs: Respirations even and unlabored, symmetrical chest expansion Eyes: PERRL Musculoskeletal: Flexion and extension of lumbar [spine] somewhat guarded secondary to pain, [antalgic gait noted] Neurological: Speech clear, no gross sensory deficit Procedure Details:: Informed consent was obtained and the risk and benefits of the procedure were explained to the patient. Patient was taken to the procedure room where noninvasive monitoring was placed including noninvasive blood pressure cuff and pulse oximeter. Patient's pump was interrogated and was reprogrammed to Dilaudid 10 mg/mL with a daily dose of 1.5 to 4 mg/day. The patient tolerated the procedure well with no complications. Plan and Disposition:: Patient continues to have significant pain in his low back with radicular symptoms. I have discussed with the patient regarding ordering left shoulder imaging due to his new pain symptoms and possible injury to the site. I will order for a x-ray of his left shoulder. Patient is scheduled to go back to their home in [place] in the next week or 2. We will see the patient back in the clinic at the next intrathecal refill. Patient has been instructed to contact the clinic with any concerns before the next appointment. Dr. Stoddard has reviewed this note and agrees with this plan of care. This note was dictated using voice recognition software and make contain errors or omissions. -- It Is medically necessary for this patient to continue to have their intrathecal pump refilled at regular intervals. This patient had an intrathecal pain pump implanted after meeting criteria of chronic intractable pain for greater than 3 months and failing conservative treatments. Patient has committed and been compliant to the treatment plan and all planned follow up care. Since implantation of the intrathecal pain pump, the patient has had decreased pain and been more functional. Oral medications have been reduced including intake of oral opioids. Patient continues to do well with intrathecal therapy with decrease in pain symptoms and increase in functional status. Stopping intrathecal medications can lead to life threatening withdrawal, seizures, cardiac arrest, severe pain, and possible . Pumps that are not refilled at regular intervals can be damages and cause and need for replacement. We continually titrate dose and concentration to optimize pain relief and function. We are limited in concentration for certain drugs to safely deliver medications through the pump and stay within the recommendations from the Polyanalges[employer] Consensus Committee Guidelines. Depending on dose and concentration these pumps may need to be refilled sooner than 3 months as we titrate.
== END | disposition home or self-care (01) ==
PROVIDERS: Visit Provider Nurse Practitioner Family
DX: M51.16 Intervertebral disc disorders with radiculopathy, lumbar region (principal)
CPT/HCPCS: 62368; 99213; G0463

== ENCOUNTER → 2022-04-12 11:38 | Outpatient (CLI) | payer MEDICARE, BC, SELFPAY ==
--- NOTE | 2022-04-12 11:52 | XR_ITS ---
FINAL REPORT CLINICAL HISTORY: LEFT SHOULDER PAIN FINDINGS: LEFT SHOULDER 3 views of the left shoulder were obtained. There is no acute fracture or dislocation. Visualized joint spaces are normally aligned. There is moderate acromioclavicular joint arthropathy. The glenohumeral joint is unremarkable. Soft tissues are unremarkable. IMPRESSION: Moderate acromioclavicular joint arthropathy. Reviewed, Interpreted and Dictated by Jorden Silva MD Transcribed by Leydi Ardon Authenticated and [facility]
== END ==
PROVIDERS: PCP Family Medicine; Visit Provider Nurse Practitioner Family
DX: M25.512 Pain in left shoulder (principal)
CPT/HCPCS: 62368; 73030; 99213; G0463